=== PATIENT | male | born 1975 ===

== ENCOUNTER 2020-06-03 10:37 | Emergency (ER) | payer SELFPAY ==
[~2020-06-03] VITALS: Ht 180.3 cm; Wt 76.4 kg
[2020-06-03 10:42] VITALS: BP 99/66
[2020-06-03] MEDS ORDERED: BACITRACIN OINT 500U/GM, 28GM TP ONE (11:00)
[2020-06-03] MEDS ORDERED: NEOSPORIN OINT. PKT 1 PACKET ONE (11:10)
--- NOTE | 2020-06-03 11:49 | NUR ---
discharge instructions reviewed with pt. all questions answered at this time.
== END 2020-06-03 11:51 | disposition home or self-care (01) ==
LOC: ED 11:38
DX: S90.812A Abrasion, left foot, initial encounter (principal); S90.811A Abrasion, right foot, initial encounter; X58.XXXA Exposure to other specified factors, initial encounter; Y93.89 Activity, other specified; Y92.89 Other specified places as the place of occurrence of the external cause; Y99.8 Other external cause status
CPT/HCPCS: 99282